=== PATIENT | female | born 1975 | race Caucasian/White ===

== ENCOUNTER → 2017-04-28 | Outpatient (CLI) | payer OTHER ==
[~2017-04-28] MED LIST: FLINTSTONES1 CTB PO; PRENATAL1 TA1 PO
== END ==
LOC: MC.RAD 10:42
DX: N60.12 Diffuse cystic mastopathy of left breast (principal); N60.11 Diffuse cystic mastopathy of right breast; N63 Unspecified lump in breast; N62 Hypertrophy of breast

== ENCOUNTER → 2017-05-18 | Outpatient (CLI) | payer OTHER | LOC: MC.RAD 11:02 | DX: N63 Unspecified lump in breast (principal) ==

== ENCOUNTER → 2021-05-13 | Outpatient (CLI) | payer BC | LOC: MC.RAD 10:12 | DX: Z12.31 Encounter for screening mammogram for malignant neoplasm of breast (principal) ==

== ENCOUNTER → 2022-06-17 | Outpatient (CLI) | payer BC | LOC: MC.RAD 09:12 | DX: Z12.31 Encounter for screening mammogram for malignant neoplasm of breast (principal) ==

== ENCOUNTER → 2024-07-01 | Outpatient (CLI) | payer BC ==
[2006-04-16 09:31] VITALS: PULSE 60
== END ==
LOC: MC.RAD 13:45
DX: Z00.00 Encounter for general adult medical examination without abnormal findings (principal); Z12.31 Encounter for screening mammogram for malignant neoplasm of breast